=== PATIENT | male | born 1980 | race Caucasian/White ===

== ENCOUNTER 2024-10-20 14:44 | Emergency (ER) | payer OTHER, SELFPAY ==
[2024-10-20 15:01] VITALS: BP 148/81; PULSE 88; RESP 18; TEMP 36.6; O2SAT 99; BMI 25.4
--- NOTE | 2024-10-20 15:13 | XR_ITS ---
Examination: Foot, right, 3 views Technique: AP, oblique, lateral views foot, 3 views Date and time of exam: October 20, 2024 1555 hrs. Indications: Redness and swelling right foot this week Diabetic Findings: No cortical bone destruction No fracture No foreign body Impression: No cortical bone destruction
--- NOTE | 2024-10-20 15:13 | XR_ITS ---
Examination: PA chest single view Technique: Upright PA chest single view Exam date and time: October 20, 2024 1556 hrs. Indications: Chest pain beginning 5 days ago Findings: Normal heart size. Lungs are clear. The osseous structures are intact Impression: No active disease
--- NOTE | 2024-10-20 15:15 | EKG_ITS ---
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
--- NOTE | 2024-10-20 15:15 | EDNOTE_ITS ---
<Statement entered by Rosi Valentin MD - 10/22/24 07:00> As co-signing physician, I was present and available for consult prn. I concur with the plan and care as documented by the midlevel provider. Lower Extremity Injury RME/HPI General Chief Complaint: Ankle/Foot Injury Stated Complaint: RIGHT BIG TOE TURNING BLACK; RIGHT CHEST PAIN Time Seen by Provider: 10/20/24 14:50 Arrival date/time: 10/20/24 14:44 RME / HPI RME / HPI Narrative: 44-year-old male patient with significant history of diabetes mellitus, came in for evaluation regarding right great toe gangrene. Onset of symptoms for the last 3 days, patient noticed swelling and dusky discoloration of the right great toe severity moderate. Denies any trauma to the toes. Patient also complained of right-sided chest pain worse with coughing and depressing. Has been having cough for a while now. Denies any fever denies any other complaints. Patient denies any trauma to the toes. Medications taken prior to arrival. Related Data Home Medications ?Medication ?Instructions ?Recorded ?Confirmed metformin 500 mg tablet 500 mg PO QDAY 12/24/2112/11 Previous Rx's ?Medication ?Instructions ?Recorded ibuprofen 800 mg tablet 800 mg PO TID PRN pain #30 t abs 12/24/21 cephalexin 500 mg capsule 500 mg PO TID 10 days #30 ca ps 10/20/24 pentoxifylline 400 mg 400 mg PO TID #30 tabs 10/20 tablet,extended release sulfamethoxazole 800 1 tab PO BID #20 tabs mg-trimethoprim 160 mg tablet (Bactrim DS) Allergies Allergy/AdvReac Type Severity Reaction Status Date / Time No Known Allergies Allergy Verified 10/20/24 14:47 Review of Systems Review of Systems Narrative Review of Systems: Review of system reviewed and within normal limits except mentioned in HPI ED Exam Narrative Physical exam: VITAL SIGNS: Reviewed. GENERAL APPEARANCE: Alert and interactive, follows commands, no acute distress, HEAD AND FACE: Non-traumatic. ENT: PERRL, pink conjunctivitis, eyelid no trauma, Mucous membrane moist. NECK: Supple, nontender, no nuchal rigidity. CHEST: No tenderness, no crepitus, no paradoxical movement, no retractions. LUNGS: Clear, well ventilated, symmetric, no rales, no wheezing, no ronchi, no stridor, good breath sounds bilaterally. HEART: Regular rate, regular rhythm, no murmur, no gallops. ABDOMEN: Soft, positive bowel sounds, nondistended, no guarding, nontender, no rebound, no masses, RECTAL: Deferred. GENITAL: Deferred. NEUROLOGICAL: Gross motor function intact sensory function intact, Appropriate for age. MUSCULOSKELETAL: low back nontender, full range of motion. EXTREMITIES:+ Right grade toe swelling, and dusky discoloration, nontender, with chronic abnormality of the nail. nontender, full range of motion. SKIN: Color pink, dry, no rash, no lacerations, no abrasions, no contusions. LYMPHATICS: Deferred. Course Quality Measures none Orders Category Date Time Status EKG (ED ONLY) *Do not use* NOW Care 10/20/24 15:15 Completed EKG (ED Only) Stat Exams 10/20/24 15:15 Draft XR chest 1V Stat Exams 10/20/24 15:13 Completed XR foot comp RT min 3V Stat Exams 10/20/24 15:13 Completed B-Type Natriuretic Peptide Stat Lab 10/20/24 15:43 Completed Blood Culture (Lab) Stat Lab 10/20/24 15:43 Received CBC Stat Lab 10/20/24 15:43 Completed Comprehensive Metabolic Panel Stat Lab 10/20/24 15:43 Completed Lactate (Lactic Acid) Stat Lab 10/20/24 15:43 Completed Partial Thromboplastin Time Stat Lab 10/20/24 15:43 Completed Procalcitonin Stat Lab 10/20/24 15:43 Completed Prothrombin Time with INR Stat Lab 10/20/24 15:43 Completed Troponin I Stat Lab 10/20/24 15:43 Completed Urinalysis, C/S if Indicated Stat Lab 10/20/24 16:25 Completed Trimethoprim/Sulfa 160/800 Ds [Bactrim Ds] Med 10/20/24 17:35 Discontinued 1 tab PO X1 ONE Vital Signs Vital signs: Vital Signs Temperature 98 F 10/20/24 15:01 Pulse Rate 88 10/20/24 15:01 Respiratory Rate 18 10/20/24 15:01 Blood Pressure 148/81 H 10/20/24 15:01 Pulse Oximetry (%) 99 10/20/24 15:01 Oxygen Delivery Method Room Air 10/20/24 15:01 Extremity Injury, Lower MDM Narrative MDM Narrative:: 44-year-old male patient with significant history of diabetes mellitus, came in for evaluation regarding right great to gangrene. Onset of symptoms for the last 3 days, patient noticed swelling redness and discoloration of the right great to severity moderate. Denies any trauma to the toes. Patient also complained of right-sided chest pain worse with coughing and depressing. Has been having cough for a while now. Denies any fever denies any other complaints. Medications taken prior to arrival. I personally reviewed and interpreted the x-ray of this patient. There is no acute abnormalities found, no infiltrates no pneumothorax no hemothorax normal chest x-ray. Review of other structures was without significant abnormal findings also. I additionally reviewed the radiologist report and agree with the interpretation. Patient's workup all came back unremarkable including normal CBC no leukocytosis noted, x-ray of the foot also showed no sign of osteomyelitis. Pro-Adrian is normal glucose 163. Patient was given first dose of Bactrim in the emergency room. Patient does not need inpatient admission at this time, patient is having dry gangrene to the great toe However patient needs to be seen by a verify rep as outpatient. Patient was advised to see PCP and referral to verify rep. Patient data External records reviewed:: None Clinical information provided by:: patient and family Social determinants that could affect healthcare access:: none Patient has the following chronic illnesses:: Diabetes mellitus How is presenting disease/condition affected by chronic disease/condition?: exacerbated by Evaluation data The following diagnostics were reviewed and interpreted by me:: lab results, radiology exam(s) and EKG tracing(s) Lab and/or radiology exams considered but not ordered:: None Interpretation Summary: See results in MDM. EKG showed as interpreted by me showed sinus rhythm, ventricular rate of 89 bpm, No ST segment elevation depression noted. Medications / Prescriptions Medications or Prescriptions considered but not ordered:: Plan Medication administrations:: Medication Administration History Discontinued Medications Trimethoprim/Sulfamethoxazole (Trimethoprim/Sulfa 160/800 Ds Tablet) 1 tab PO X1 ONE Stop: 10/20/24 17:36 Bactrim Consultations Consultation(s) initiated? (list below): No Diagnosis Extremity Injury, Lower Differential Diagnosis: other (Diabetic toe infection, dry gangrene grade toe, toe cellulitis) Most likely diagnosis given after review of the tests above:: Great toe gangrene,dry Diabetes mellitus Admission Indicated Admission indicated?: not indicated Admission Request Was there a request for admission?: No Disposition Plan Disposition Plan: Discharge Discharge Attestation Discharge Attestation: The patient and all family members were given an opportunity to ask questions and understood the discharge instructions. Discharge instructions specifically effects, indications for sooner follow up or return to the emergency department, and the expected course of current diagnosis. Patient condition: Stable Discharge Plan Plan Patient Disposition: HOME (Self Care) Disposition Comment: stable Prescriptions/Referrals Prescriptions/Med Rec: New cephalexin 500 mg capsule 500 mg PO TID 10 Days Qty: 30 0RF sulfamethoxazole-trimethoprim [Bactrim DS] 800-160 mg tablet 1 tab PO BID Qty: 20 0RF pentoxifylline 400 mg tablet extended release 400 mg PO TID Qty: 30 0RF Rx Instructions: must administer with a meal/food No Action metformin 500 mg Tablet 500 mg PO QDAY ibuprofen 800 mg tablet 800 mg PO TID PRN (Reason: pain) Qty: 30 0RF Referrals: No Primary/Family,Physician [Primary Care Provider] - In 1 week Problem List Clinical Impression: Infection of toe Patient/Caregiver Discharge Instructions Discharge Activity: activity as tolerated Education Materials: ED Wound Check (Infection) Additional Instructions: Thank you for the opportunity for serving you today. You are stable for discharged . You are advised to: Follow-up with your PCP in 1 to 2 days ask your PCP to refer you to a verify rep Return to ED for worsening of symptoms Increase oral fluids Take medication as prescribed Apply Betadine twice a day as needed. Apply dressing every day Print Language: [place] Stand Alone Forms: [employer]loé Award Info., Patient Portal Info Letter PA/MINING SUPPORT WORKER Supervising Physician ROXY/MINING SUPPORT WORKER Supervising Physician: MD Barbie
[2024-10-20 15:51] LABS: Basophils % (Auto) 1 % (0-2.5); Eosinophils # (Auto) 0.1 Thou/mm3 (0.0-0.5); Eosinophils % (Auto) 2 % (0-10); Hematocrit 39.2 % (41.0-53.0); Hemoglobin 13.5 g/dL (13.5-16.0); Immature Granulocytes % (Auto) 0 % (0-0); Immature Granulocytes Auto 0.01 Thou/mm3 (0.00-0.00); Lymphocytes # (Auto) 2.4 Thou/mm3 (1.0-4.8); Lymphocytes % (Auto) 38 % (10-50); Mean Corpuscular HGB Conc 34.4 g/dl (31.0-37.0); Mean Corpuscular Hemoglobin 30.8 pg (25.0-35.0); Mean Corpuscular Volume 90 fL (80-100); Monocytes # (Auto) 0.8 Thou/mm3 (0.0-0.8); Monocytes % (Auto) 13 % (0-12); Neutrophils % (Auto) 47 % (37-80); Nucleated Red Blood Cell % 0 /100 WBC (0); Platelet Count 312 Thou/mm3 (140-440); RDW Standard Deviation 43.5 fL (35.1-43.9); Red Blood Count 4.38 Miln/mm3 (4.50-5.90); White Blood Count 6.3 Thou/mm3 (3.8-10.6)
[2024-10-20 16:11] LABS: B-Type Natriuretic Peptide < 20 pg/mL (0-100)
[2024-10-20 16:17] LABS: Partial Thromboplastin Time 24.6 Seconds (22.0-36.0); Prothrombin Time 10.6 Seconds (9.0-12.2)
[2024-10-20 16:19] LABS: Alanine Aminotransferase 19 U/L (10-49); Albumin, Serum 4.6 gm/dL (3.5-5.0); Albumin/Globulin Ratio 1.2 (1.2-2.2); Alkaline Phosphatase 108 U/L (46-116); Anion Gap 8 (7-16); Aspartate Amino Transferase 24 U/L (0-34); BUN/Creatinine Ratio 11 Ratio (12-20); Bilirubin,Total 0.6 mg/dL (0.3-1.2); Blood Urea Nitrogen 11 mg/dL (9-23); Calcium 9.1 mg/dL (8.3-10.6); Calcium (Corrected) 9.1 mg/dL (8.5-10.1); Carbon Dioxide 25.4 mMol/L (20.0-31.0); Chloride 107 mMol/L (98-107); Estimated Creatinine Clearance 105.4 mL/min (>60); Glucose 163 mg/dL (74-106); Osmolality,Calculated 282 (275-295); Potassium 3.8 mMol/L (3.4-5.1); Procalcitonin < 0.04 ng/ml (0.0-0.49); Sodium 140 mMol/L (136-145); Total Protein 8.6 gm/dL (5.7-8.2); Troponin I < 0.002 ng/mL (0.0-0.045); eGFR > 60 See Note
[2024-10-20 16:36] LABS: Collection Type, Urine Clean Catch; Squamous Epithelial Cell,Urine 0 /hpf (0-5)
[2024-10-20 16:44] LABS: Bilirubin,Urine Negative (Negative); Blood,Urine Negative (Negative); Clarity,Urine Clear (Clear/Hazy); Color,Urine Yellow (Lt Yel-Yel); Culture Indicated,Urine Not Indicated; Glucose, Urine Negative (Negative); Ketones,Urine Negative (Negative); Leukocyte Esterase,Urine Negative (Negative); Nitrite,Urine Negative (Negative); PH,Urine 5.5 (5.0-7.0); Protein,Urine Trace (Neg - Trace); RBC,Urine 3 /hpf (0-3); Specific Gravity,Urine 1.029 (1.001-1.035); Urobilinogen,Urine Negative mg/dL (0.0-1.0); WBC,Urine 1 /hpf (0-5)
[2024-10-20] MEDS: TRIMETHOPRIM/SULFA 160/800 DS TABLET 1 TAB PO (18:13)
== END 2024-10-20 18:45 | disposition home or self-care (01) ==
PROVIDERS: Nurse Practitioner Family; Emergency Provider Emergency Medicine
DX: L08.9 Local infection of the skin and subcutaneous tissue, unspecified (principal); R07.9 Chest pain, unspecified; R05.9 Cough, unspecified; E11.52 Type 2 diabetes mellitus with diabetic peripheral angiopathy with gangrene
CPT/HCPCS: 36415; 71045; 73630; 80053; 81001; 83605; 83880; 84145; 84484; 85025; 85610; 85730; 87040; 93005; 99283; A9270